=== PATIENT | female | born 2000 | race American Indian/Alaskan Native ===

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

== ENCOUNTER 2019-07-12 14:02 | Emergency (ER) | payer OTHER ==
--- NOTE | 2019-07-12 16:18 | Emergency Department Report ---
Blank Doc - Documentation Documentation: 18-year-old female that presents with fever, chills, and URI symptoms. This initial assessment/diagnostic orders/clinical plan/treatment(s) is/are subject to change based on patient's health status, clinical progression and re- assessment by fellow clinical providers in the ED. Further treatment and workup at subsequent clinical providers discretion. Patient/guardians urged not to elope from the ED as their condition may be serious if not clinically assessed and managed. Initial orders include: 1- Patient sent to [facility] for further evaluation and treatment 2- CXR
[2019-07-12] MEDS ORDERED: IBUPROFEN 400 MG TAB PO ONE (17:04)
--- NOTE | 2019-07-12 17:15 | XRay Report ---
CHEST 2 VIEWS INDICATION: cough. COMPARISON: None. FINDINGS: Support devices: None. Heart: Within normal limits. Lungs/Pleura: No acute air space or interstitial disease. No significant pleural effusion. IMPRESSION: No acute findings. Signer Name: Chang May MD Signed: 07/12/2019 5:10 PM Workstation Name: [id number]
--- NOTE | 2019-07-12 17:28 | Emergency Department Report ---
Chief Complaint: Upper Respiratory Infection Stated Complaint: FEVER, BODY ACHE Time Seen by Provider: 07/12/19 16:17 - HPI History of Present Illness: Patient is a 18-year-old female presents emergency room with complaints of generalized body aches that began 3 days ago. She has associated subjective fever. She states 3 days ago she had one episode of diarrhea and a few episodes of vomiting. She states that the vomiting and diarrhea has since resolved completely. She states she has an associated dry cough and itchy dry throat. She denies any productive cough, ear pain, shortness of breath, chest pain. She states that she has had sick contact with her younger nephew. She denies any past medical history. She denies any allergies to medications. She has a non- smoker. Last menstrual cycle July 04, 2019. Vitals with mildly elevated temperature, otherwise normal Patient given ibuprofen All systems reviewed and negative except as documented in HPI On exam: Non toxic appearing, no acute distress atraumatic, normocephalic normal appearance of the eyes, PERRL, EOMI, no periorbital edema or ecchymosis moist mucus membranes, normal oropharynx, normal TMs and canals, no tonsilar hypertrophy or exudates, no uvula edema or deviation, no sinus ttp bilaterally regular heart rate and rhythm, no gallops, no rubs, no murmurs breath sounds are clear bilaterally, no w/r/r, no stridor, no respiratory distress, no prolonged expiratory phase A&O x4, no focal neuro deficit skin is warm, dry, intact Patient has clinical signs and symptoms of influenza Patient is out of the 48-hour range for Tamiflu Patient has clear breath sounds, no signs of respiratory distress Patient has no clinical signs of pneumonia Checks x-ray ordered prior to my examination with no no acute process Discussed symptomatic and supportive care with patient Discussed the importance of oral rehydration Advised patient to follow-up with a primary care doctor in the next 2 to 3 days for reexamination Discussed strict return precautions with patient - Exam Vital Signs: Vital Signs 07/12/19 16:21 Temperature 100.2 F H Pulse Rate 96 H Respiratory 18 Rate Blood Pressure 109/60 O2 Sat by Pulse 100 Oximetry MSE screening note: Focused history and physical exam performed. ED Medical Decision Making - Lab Data Vital Signs 07/12/19 07/12/19 16:21 17:58 Temperature 100.2 F H 100.0 F H Pulse Rate 96 H 77 Respiratory 18 16 Rate Blood Pressure 109/60 93/52 O2 Sat by Pulse 100 98 Oximetry - Radiology Data Radiology results: report reviewed, image reviewed CHEST 2 VIEWS INDICATION: cough. COMPARISON: None. FINDINGS: Support devices: None. Heart: Within normal limits. Lungs/Pleura: No acute air space or interstitial disease. No significant pleural effusion. IMPRESSION: No acute findings. Signer Name: Chang May MD Signed: 07/12/2019 5:10 PM Workstation Name: [id number] Transcribed By: ES Dictated By: Chang May MD Electronically Authenticated By: Chang May MD Signed Date/Time: 07/12/191709 DD/ 09 TD/TT: ED Disposition for MSE Clinical Impression: Influenza Disposition: MED SCREENING EXAM-LEFT Is pt being admited?: No Does the pt Need Aspirin: No Condition: Stable Instructions: Influenza (ED) Additional Instructions: Please increase your fluid intake over the next several days. May alternate Tylenol then ibuprofen every 6 hours as needed for a fever. May use [id number] Mucinex or TheraFlu. Get plenty of rest. Follow-up with your primary care doctor for reevaluation. Return to the emergency room immediately for any new or worsening symptoms including but not limited to shortness of breath, chest pain, increasing fevers, inability to tolerate by mouth intake, productive cough with white or brown sputum, etc. Referrals: FLORENTIN RUBIO MD [Staff Physician] - 2-3 Days [facility] [Outside] - 2-3 Days [facility] [Outside] - 2-3 Days Forms: Work/School Release Form(ED) Time of Disposition: 17:27 Print Language: MACEDONIAN
[2019-07-12 18:15] VITALS: BP 93/52
== END 2019-07-12 18:00 | disposition left against medical advice (07) ==
LOC: ED 14:02
DX: J11.1 Influenza due to unidentified influenza virus with other respiratory manifestations (principal)
CPT/HCPCS: 71046; 99283

== ENCOUNTER 2020-08-17 05:11 | Emergency (ER) | payer SELFPAY ==
[2020-08-17 05:28] VITALS: BP 121/82
--- NOTE | 2020-08-17 05:49 | XRay Report ---
CHEST PA AND LATERAL VIEWS INDICATION: chesty enma cristobal. COMPARISON: None. FINDINGS: Support devices: None. Heart: Within normal limits. Lungs/Pleura: No acute pulmonary or pleural findings. IMPRESSION: 1. No acute findings. Signer Name: Miah Leigh MD Signed: 08/17/2020 5:44 AM Workstation Name: [id number]
[2020-08-17 09:25] LABS: Basophils % (Auto) 0.3 % (0.0-1.8); Eosinophils # (Auto) 0.1 K/mm3 (0.0-0.4); Eosinophils % (Auto) 0.7 % (0.0-4.3); Hematocrit 40.6 % (30.3-42.9); Hemoglobin 13.4 gm/dl (10.1-14.3); Lymphocytes # (Auto) 0.5 K/mm3 (1.2-5.4); Lymphocytes % (Auto) 5.4 % (13.4-35.0); Mean Corpuscular HGB Conc 33 % (30-34); Mean Corpuscular Volume 96 fl (79-97); Monocytes # (Auto) 0.7 K/mm3 (0.0-0.8); Monocytes % (Auto) 8.2 % (0.0-7.3); Platelet Count 368 K/mm3 (140-440); Red Blood Count 4.22 M/mm3 (3.65-5.03); Red Cell Distribution Width 11.8 % (13.2-15.2)
[2020-08-17 09:48] LABS: Blood Urea Nitrogen 6 mg/dL (7-17); Calcium 9.4 mg/dL (8.4-10.2); Hemolysis Index 2
[2020-08-17 09:58] LABS: BUN/Creatinine Ratio 12
--- NOTE | 2020-08-17 10:15 | Event Note ---
ED Screening Note ED Screening Note: SOB COUGH CONGESTION FEVER CHILLS This initial assessment/diagnostic orders/clinical plan/treatment(s) is/are subject to change based on patients health status, clinical progression and re- assessment by fellow clinical providers in the ED. Further treatment and workup at subsequent clinical providers discretion. Patient/guardian urged not to elope from the ED as their condition may be serious if not clinically assessed and managed. Initial orders include: LABS UA
[2020-08-17 10:43] LABS: Bilirubin,Urine NEG (Negative); Blood,Urine NEG (Negative); Color,Urine Straw (Yellow); Protein,Urine <15 mg/dL mg/dL (Negative)
--- NOTE | 2020-08-17 10:45 | Emergency Department Report ---
Minor Respiratory - HPI Chief Complaint: Dyspnea/Respdistress Stated Complaint: KRISTAL, CHEST PAIN Time Seen by Provider: 08/17/20 10:13 Duration: 3 Days Pain Location: Chest Severity: moderate Minor Respiratory: Yes Sore Throat, Yes Able to Tolerate Fluids, Yes Cough, Yes Shortness of Breath, Yes Fever, No Rhinorrhea, No Ear Pain, No Sick Contacts, No Hemoptysis, No Chest Pain Other History: 19 YO COMES TO ER WITH FEVER AND CHILLS. RUNNY NOSE AND COUGH. NO KNOWN EXPOSURE TO COVID19. NO IMMUNIZATION TO COVID. AMBULATORY IN TRIAGE; WRAPPED IN A BLANKET. ED Review of Systems ROS: Stated complaint: KRISTAL, CHEST PAIN Other details as noted in HPI Comment: All other systems reviewed and negative ED Past Medical Hx - Past Medical History Previous Medical History?: No - Surgical History Past Surgical History?: Yes Additional Surgical History: right hip surgery - Family History Family history: no significant - Social History Smoking Status: Never Smoker Substance Use Type: Alcohol - Medications Home Medications: Home Medications Medication Instructions Recorded Confirmed Last Taken Type Albuterol Mdi (or & Nicu Only) 2 puff IH QID PRN #1 inhalation 08/17/20 Unknown Rx [ProAir HFA Inhaler] Azithromycin [Zithromax Z-SARAH] 250 mg PO DAILY #6 tablet 08/17/20 Unknown Rx Cetirizine HCl [ZyrTEC] 10 mg PO DAILY #30 capsule 08/17/20 Unknown Rx Fluticasone [Flonase] 1 spray NS QDAY #1 bottle 08/17/20 Unknown Rx predniSONE [Deltasone] 20 mg PO DAILY #5 tablet 08/17/20 Unknown Rx Minor Respiratory Exam - Exam General: Vital signs noted. No distress. Alert and acting appropriately. HEENT: Yes Moist Mucous Membranes, No Pharyngeal Erythema, No Pharyngeal Exudates, No Rhinorrhea, No Conjuctival Injection, No Frontal Tenderness, No Maxillary Tenderness Ear: Neither TM Bulge, Neither TM Erythema, Neither EAC Pain, Neither EAC Discharge Neck: Yes Supple, No Adenopathy Lungs: Yes Good Air Exchange, Yes Wheezes, No Ronchi, No Stridor, No Cough, No Labored Respirations, No Retractions, No Use of Accessory Muscles, No Other Abnormal Lung Sounds Heart: Yes Regular, No Murmur Abdomen: Yes Normal Bowel Sounds, No Tenderness, No Peritoneal Signs Skin: No Rash, No Edema Neurologic: Alert and oriented, no deficits. Musculoskeletal: Unremarkable. ED Course Vital Signs 08/17/20 05:15 Temperature 100.5 F H Pulse Rate 116 H Respiratory 18 Rate Blood Pressure 121/82 O2 Sat by Pulse 97 Oximetry ED Medical Decision Making - Lab Data Result diagrams: 08/17/20 08:39 08/17/20 08:39 - EKG Data Rate: tachycardia - EKG Data When compared to previous EKG there are: no significant change Interpretation: no acute changes - Radiology Data Radiology results: report reviewed, image reviewed NAP; NO COVID PNA - Medical Decision Making Labs 08/17/20 08/17/20 08/17/20 08:39 08:39 Unknown WBC 8.6 RBC 4.22 Hgb 13.4 Hct 40.6 MCV 96 MCH 32 MCHC 33 RDW 11.8 L Plt Count 368 Lymph % (Auto) 5.4 L [place] % (Auto) 8.2 H Eos % (Auto) 0.7 Baso % (Auto) 0.3 Lymph # (Auto) 0.5 L [place] # (Auto) 0.7 Eos # (Auto) 0.1 Baso # (Auto) 0.0 Seg Neutrophils % 85.4 H Seg Neutrophils # 7.4 Sodium 135 L Potassium 4.2 Chloride 99.8 Carbon Dioxide 25 Anion Gap 14 BUN 6 L Creatinine 0.5 L Estimated GFR > 60 BUN/Creatinine Ratio 12 Glucose 87 Calcium 9.4 Urine Color Straw Urine Turbidity Clear Urine pH 8.0 H Ur Specific [place] 1.009 Urine Protein <15 mg/dl Urine Glucose (UA) Neg Urine Ketones 20 Urine Blood Neg Urine Nitrite Neg Urine Bilirubin Neg Urine Urobilinogen 4.0 Ur Leukocyte Esterase Neg Urine WBC (Auto) 1.0 Urine RBC (Auto) 1.0 U Epithel Cells (Auto) 1.0 Urine HCG, Qual Negative Vital Signs 08/17/20 05:15 Temperature 100.5 F H Pulse Rate 116 H Respiratory 18 Rate Blood Pressure 121/82 O2 Sat by Pulse 97 Oximetry duoneb and prednISONE for wheezing on arrival to [facility] denies hx asthma xray not consistent with covid pna taking po motrin for fever ambulatory and non ill appearing on reexam at 1130 LABS NOTED PREG NEG XRAY NEG FOR CONSOLIDATION PT BEING DC HOME WITH RX/ FOLLOW UP/DIET AND ACTIVITY INSTRUCTIONS. SHE VERBALIZES UNDERSTANDING OF PLAN OF CARE. AMBULATORY AND TAKING PO ON DC - Differential Diagnosis ro uri/covid/uti Critical care attestation.: If time is entered above; I have spent that time in minutes in the direct care of this critically ill patient, excluding procedure time. ED Disposition Clinical Impression: URI (upper respiratory infection), Fever Disposition: DC-01 TO HOME OR SELFCARE Is pt being admited?: No Does the pt Need Aspirin: No Condition: Stable Instructions: Upper Respiratory Infection, Adult Additional Instructions: STAY WELL HYDRATED MEDS ORDERED TODAY FOLLOW UP WITH PCP REFERRAL BELOW MOTRIN OR TYLENOL OVER THE COUNTER FOR FEVER [employer] Prescriptions: predniSONE [Deltasone] 20 mg PO DAILY #5 tablet Fluticasone [Flonase] 1 spray NS QDAY #1 bottle Albuterol Mdi (or & Nicu Only) [ProAir HFA Inhaler] 2 puff IH QID PRN #1 inh alation PRN Reason: Shortness Of Breath Azithromycin [Zithromax Z-SARAH] 250 mg PO DAILY #6 tablet Cetirizine HCl [ZyrTEC] 10 mg PO DAILY #30 capsule Referrals: FLORENTIN RUBIO MD [Staff Physician] - 3-5 Days Time of Disposition: 11:27
[2020-08-17 11:21] LABS: HCG Qualitative,Urine Negative (Negative)
[2020-08-17] MEDS ORDERED: predniSONE 20 MG TAB PO ONE (11:29)
[2020-08-17] MEDS ORDERED: IBUPROFEN 800 MG TAB PO ONE (11:29)
[2020-08-17] MEDS ORDERED: IPRATROPIUM/ALBUTEROL SULFATE 3 ML AMPUL.NEB IH ONE (11:29)
--- NOTE | 2020-08-17 11:46 | Electrocardiograph Report ---
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
== END 2020-08-17 12:48 | disposition home or self-care (01) ==
LOC: ED 05:11
DX: J06.9 Acute upper respiratory infection, unspecified (principal); Z79.899 Other long term (current) drug therapy
CPT/HCPCS: 36415; 71046; 80048; 81001; 81025; 85025; 93005; 94640; 99284; J7512; 94644

== ENCOUNTER 2020-10-11 09:11 | Emergency (ER) | payer SELFPAY ==
[2020-10-11 09:23] VITALS: BP 103/54
--- NOTE | 2020-10-11 09:30 | Emergency Department Report ---
ED General Adult HPI - General Chief complaint: Nausea/Vomiting/Diarrhea Stated complaint: SOB, CHEST PAIN, BODY ACHES Time Seen by Provider: 10/11/20 09:24 Source: patient Mode of arrival: Ambulatory Limitations: No Limitations - History of Present Illness Initial comments: 20-year-old -[place] female patient presents with complaints of body ac hes, sore throat, and vomiting starting last night. Patient states she only had one episode of vomiting after taking a [employer] powder. She denies any hematemesis/coffee-ground emesis, abdominal pain, diarrhea/constipation. Patient rates her throat pain as a 7/10 in severity. She states Goody's powder helps the pain temporarily. She denies any fever sweats, loss of taste or smell, or recent known sick contacts. -: Sudden Severity scale (0 -10): 7 - Related Data Previous Rx's Medication Instructions Recorded Last Taken Type Albuterol Mdi (or & Nicu Only) 2 puff IH QID PRN #1 inhalation 08/17/20 Unknown Rx [ProAir HFA Inhaler] Azithromycin [Zithromax Z-SARAH] 250 mg PO DAILY #6 tablet 08/17/20 Unknown Rx Cetirizine HCl [ZyrTEC] 10 mg PO DAILY #30 capsule 08/17/20 Unknown Rx Fluticasone [Flonase] 1 spray NS QDAY #1 bottle 08/17/20 Unknown Rx predniSONE [Deltasone] 20 mg PO DAILY #5 tablet 08/17/20 Unknown Rx Acetaminophen [Tylenol] 1,000 mg PO Q8HR PRN #21 tablet 10/11/20 Unknown Rx Amoxicillin [Trimox CAP] 500 mg PO BID 10 Days #20 capsule 10/11/20 Unknown Rx Ibuprofen [Motrin 800 MG tab] 800 mg PO Q8HR PRN #21 tablet 10/11/20 Unknown Rx Allergies Allergy/AdvReac Type Severity Reaction Status Date / Time No Known Allergies Allergy Unverified 01/04/13 00:05 ED Review of Systems ROS: Stated complaint: SOB, CHEST PAIN, BODY ACHES Other details as noted in HPI Constitutional: denies: diaphoresis, fever, malaise, weakness ENT: throat pain Respiratory: denies: cough, shortness of breath Cardiovascular: denies: chest pain Gastrointestinal: nausea, vomiting. denies: abdominal pain, diarrhea, constipation Musculoskeletal: denies: joint swelling, arthralgia Skin: denies: rash, lesions, change in color Neurological: denies: headache ED Past Medical Hx - Past Medical History Previous Medical History?: No - Surgical History Past Surgical History?: Yes Additional Surgical History: right hip surgery - Social History Smoking Status: Never Smoker - Medications Home Medications: Home Medications Medication Instructions Recorded Confirmed Last Taken Type Albuterol Mdi (or & Nicu Only) 2 puff IH QID PRN #1 inhalation 08/17/20 Unknown Rx [ProAir HFA Inhaler] Azithromycin [Zithromax Z-SARAH] 250 mg PO DAILY #6 tablet 08/17/20 Unknown Rx Cetirizine HCl [ZyrTEC] 10 mg PO DAILY #30 capsule 08/17/20 Unknown Rx Fluticasone [Flonase] 1 spray NS QDAY #1 bottle 08/17/20 Unknown Rx predniSONE [Deltasone] 20 mg PO DAILY #5 tablet 08/17/20 Unknown Rx Acetaminophen [Tylenol] 1,000 mg PO Q8HR PRN #21 tablet 10/11/20 Unknown Rx Amoxicillin [Trimox CAP] 500 mg PO BID 10 Days #20 capsule 10/11/20 Unknown Rx Ibuprofen [Motrin 800 MG tab] 800 mg PO Q8HR PRN #21 tablet 10/11/20 Unknown Rx ED Physical Exam - General Limitations: No Limitations General appearance: alert, in no apparent distress - Head Head exam: Present: atraumatic, normocephalic - Eye Eye exam: Present: normal appearance. Absent: scleral icterus - Expanded ENT Exam Expanded Mouth exam: Absent: drooling, trismus Throat exam: Positive: tonsillar erythema (Bilateral), tonsillomegaly (Bilateral), other (Uvula is midline). Negative: tonsillar exudate, R peritonsillar mass, L peritonsillar mass - Neck Neck exam: Present: full ROM, lymphadenopathy (mild anterior cervical, tender). Absent: tenderness - Respiratory Respiratory exam: Present: normal lung sounds bilaterally. Absent: respiratory distress - Cardiovascular Cardiovascular Exam: Present: regular rate, normal rhythm - GI/Abdominal GI/Abdominal exam: Present: soft, normal bowel sounds. Absent: distended, tenderness, guarding, rebound, rigid - Neurological Exam Neurological exam: Present: alert, oriented X3, normal gait - Psychiatric Psychiatric exam: Present: normal affect, normal mood - Skin Skin exam: Present: warm, dry, intact, normal color. Absent: rash ED Course Vital Signs 10/11/20 09:21 Temperature 99.0 F Pulse Rate 84 Respiratory 18 Rate Blood Pressure 103/54 [Left] O2 Sat by Pulse 100 Oximetry ED Medical Decision Making - Medical Decision Making 20-year-old -[place] female patient presents with complaints of body aches, sore throat, and vomiting starting last night. Patient states she only had one episode of vomiting after taking a [employer] powder. She denies any hematemesis/coffee-ground emesis, abdominal pain, diarrhea/constipation. Patient rates her throat pain as a 7/10 in severity. She states Goody's powder helps the pain temporarily. She denies any fever sweats, loss of taste or smell, or recent known sick contacts. We will treat for strep pharyngitis with Amoxil. Recommend follow-up with primary care in 3 to 5 days. Her vitals are normal, she is well-appearing, she is stable for discharge home. Strict return precautions were discussed in detail with patient who verbalized understanding. Patient also informed to get COVID-19 testing prior to returning to work. Critical care attestation.: If time is entered above; I have spent that time in minutes in the direct care of this critically ill patient, excluding procedure time. ED Disposition Clinical Impression: Acute bacterial pharyngitis Disposition: TO HOME OR SELFCARE Is pt being admited?: No Condition: Stable Instructions: Strep Throat, Adult Prescriptions: Acetaminophen [Tylenol] 1,000 mg PO Q8HR PRN #21 tablet PRN Reason: pain Ibuprofen [Motrin 800 MG tab] 800 mg PO Q8HR PRN #21 tablet PRN Reason: pain Amoxicillin [Trimox CAP] 500 mg PO BID 10 Days #20 capsule Referrals: [facility] [Provider Group] - 3-5 Days
[2020-10-11 10:03] LABS: HCG Qualitative,Urine Negative (Negative)
== END 2020-10-11 11:33 | disposition home or self-care (01) ==
LOC: ED 09:11
DX: J02.8 Acute pharyngitis due to other specified organisms (principal); B96.89 Other specified bacterial agents as the cause of diseases classified elsewhere; Z98.890 Other specified postprocedural states; Z79.899 Other long term (current) drug therapy
CPT/HCPCS: 81025; 99283